=== PATIENT | male | born 1960 | race Caucasian/White ===

== ENCOUNTER 2022-05-17 08:28 | Outpatient (CLI) | payer OTHER, SELFPAY | END 2022-05-17 08:29 | disposition home or self-care (01) | LOC: NM 08:28 | PROVIDERS: ATTEND Urology | DX: C61 Malignant neoplasm of prostate (principal) | CPT/HCPCS: 78306; A9503 ==

== ENCOUNTER 2022-10-26 10:01 | Outpatient (CLI) | payer OTHER ==
[2022-10-26] MEDS ORDERED: Iopamidol 370 76% 100 ML VIAL ONE (12:15)
== END 2022-10-26 10:02 | disposition home or self-care (01) ==
LOC: NM 10:01
PROVIDERS: ATTEND Internal Medicine Hematology & Oncology
DX: C61 Malignant neoplasm of prostate (principal); G57.02 Lesion of sciatic nerve, left lower limb; N13.2 Hydronephrosis with renal and ureteral calculous obstruction; R59.9 Enlarged lymph nodes, unspecified
CPT/HCPCS: 71250; 71260; 74177; 78306; 82565; A9503